=== PATIENT | female | born 1980 | race Caucasian/White ===

== ENCOUNTER 2020-04-21 16:15 | Emergency (ER) | payer BC, OTHER ==
[~2020-04-21] VITALS: Ht 152.4 cm; Wt 79.8 kg
[2020-04-21] MEDS ORDERED: IPRATROPIUM BROM 0.5 MG/2.5ML INH SOL NEB STA (17:07)
[2020-04-21] MEDS ORDERED: ALBUTEROL SULF 2.5 MG/0.5ML(0.5%) NEB SOLN NEB STA (17:07)
[2020-04-21] MEDS ORDERED: cefTRIAXone 1GM/50ML D5W 50 ML IV ONE (17:15)
[2020-04-21] MEDS ORDERED: AZITHROMYCIN 500MG/ 250ML 250 ML IV ONE (17:15)
[2020-04-21] MEDS ORDERED: SODIUM CHLORIDE 0.9% 1,000 ML IV ONE (17:15)
[2020-04-21] MEDS ORDERED: methylPREDNISolone SOD SUCC 125 MG/2 ML VL IV ONE (17:15)
[2020-04-21 18:23] LABS: Basophils # (auto) 0 10 ^3/uL (0-0.2); Basophils % (auto) 0.6 % (0.0-2.0); Eosinophils # (auto) 0 10 ^3/uL (0-0.8); Hematocrit 43.7 % (36.0-46.0); Hemoglobin 14.4 g/dL (12.2-16.2); Lymphocytes # (auto) 0.7 10 ^3/uL (0.4-5.4); Lymphocytes % (auto) 22.5 % (10.0-50.0); Mean Corpuscular Hemoglobin 29.3 pg (28.0-32.0); Mean Corpuscular Hgb Conc. 32.9 g/dL (32.0-36.0); Mean Corpuscular Volume 89.2 fL (80.0-100.0); Monocytes # (auto) 0.2 10 ^3/uL (0-1.3); Neutrophils # (auto) 2.1 10 ^3/uL (1.6-8.6); Neutrophils % (auto) 68.9 % (37.0-80.0); Platelet Count (auto) 217 10^3/uL (140-450); Red Cell Distribution Width 14.4 % (11.8-14.3)
[2020-04-21 18:28] LABS: Albumin 3.1 g/dL (3.4-5.0); Calcium 8.1 mg/dL (8.5-10.1); Potassium 4.3 mmol/L (3.5-5.1)
[2020-04-21 18:31] LABS: BUN/Creatinine Ratio 11.8; Bilirubin, Total 0.2 mg/dL (0.2-1.0); Total Protein 7.8 g/dL (6.4-8.2)
[2020-04-21 21:46] LABS: Urine Bacteria FEW /hpf (None Seen); Urine Blood Negative /uL (Negative); Urine Mucus FEW (None Seen); Urine Specific Gravity 1.006 (1.001-1.035); Urine WBC 27 /hpf (0 - 5)
[2020-04-22 00:30] VITALS: BP 125/86
== END 2020-04-22 00:52 | disposition home or self-care (01) ==
LOC: EDBD 16:15 → ER 16:15
DX: U07.1 COVID-19 (principal); J45.901 Unspecified asthma with (acute) exacerbation; R09.02 Hypoxemia
CPT/HCPCS: 36415; 36600; 71045; 80053; 81001; 81025; 82805; 83605; 84702; 85025; 87040; 87426; 93005; 94640; 96365; 96366; 96368; 96375; 99285; J0456; J0696; J2930; J7030; J7644

== ENCOUNTER 2024-07-12 20:26 | Emergency (ER) | payer OTHER ==
[~2024-07-12] VITALS: Ht 152.4 cm; Wt 86.4 kg
[2024-07-12] MEDS: HYDROcodone-ACET 5/325MG TAB PO ONE (21:15)
[2024-07-12] MEDS ORDERED: CEPH500C PO (22:02)
[2024-07-12] MEDS ORDERED: HYDR-4902 PO (22:02)
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
[2024-07-12] MEDS: SILVER SULFADIAZINE 1 % TOPICAL CREAM 50GM TOP ONE (22:33)
[2024-07-12 22:55] VITALS: BP 148/83; PULSE 76; RESP 16; TEMP 98.3; O2SAT 97
== END 2024-07-12 23:00 | disposition home or self-care (01) ==
LOC: EDBD 20:26 → ER 20:26
DX: T25.221A Burn of second degree of right foot, initial encounter (principal); T31.0 Burns involving less than 10% of body surface; F41.9 Anxiety disorder, unspecified; J45.909 Unspecified asthma, uncomplicated; Z90.49 Acquired absence of other specified parts of digestive tract; Z87.11 Personal history of peptic ulcer disease; X08.8XXA Exposure to other specified smoke, fire and flames, initial encounter; Y93.G3 Activity, cooking and baking; Y92.89 Other specified places as the place of occurrence of the external cause; Y99.8 Other external cause status
CPT/HCPCS: 16020